=== PATIENT | female | born 2000 | race Caucasian/White ===

== ENCOUNTER → 2020-03-03 | Outpatient (CLI) | payer BC ==
[~2020-03-03] MED LIST: CIPR750T PO
== END | disposition home or self-care (01) ==
LOC: CFH 12:01
PROVIDERS: ATTEND Obstetrics & Gynecology Gynecology
DX: N63.10 Unspecified lump in the right breast, unspecified quadrant (principal)
CPT/HCPCS: 76642

== ENCOUNTER → 2020-08-17 | Outpatient (CLI) | payer BC | END | disposition home or self-care (01) | LOC: CFH 06:42 | PROVIDERS: ATTEND Obstetrics & Gynecology Gynecology | DX: R10.2 Pelvic and perineal pain (principal) | CPT/HCPCS: 76830 ==

== ENCOUNTER 2021-06-29 08:54 | Emergency (ER) | payer BC ==
[~2021-06-29] VITALS: Ht 177.8 cm; Wt 113.0 kg
[2021-06-29 09:31] LABS: MICROSCOPIC AUTO
[2021-06-29 09:48] LABS: BASOPHILS % (AUTO) 1 % (0-1); EOSINOPHILS % (AUTO) 2 % (1-7); LYMPHOCYTES % (AUTO) 25 % (22-44); MEAN CORPUSCULAR HGB CONC 34.1 g/dL (32.4-35.8); MEAN PLATELET VOLUME 8.4 fL (7.4-10.4); MONOCYTES % (AUTO) 6 % (2-9); NEUTROPHILS % (AUTO) 66 % (42-75); PLATELET COUNT 290 x10^3/uL (130-400); RED CELL DISTRIBUTION WIDTH 12.8 % (9.6-15.2)
[2021-06-29 09:55] LABS: ALBUMIN 3.9 g/dL (3.4-5.0); ANION GAP 9 mmol/L (5-15); CALCIUM 9.6 mg/dL (8.5-10.1); CHLORIDE 108 mmol/L (98-107); CREATININE 0.69 mg/dL (0.55-1.02)
--- NOTE | 2021-06-29 11:04 | NUR ---
PT AMBULATED TO ROOM WITH STEADY GAIT. PT CONNECTED TO MONITORING. CALL LIGHT IN REACH. WARM BLANKET PROVIDED.
[2021-06-29 11:05] VITALS: BP 136/72
[2021-06-29] MEDS ORDERED: CEFTRIAXONE 1,000 MG ONE (11:46)
--- NOTE | 2021-06-29 11:51 | NUR ---
DC INSTRUCTIONS REVIEWED
[2021-06-29] MEDS ORDERED: KETOROLAC 30 MG/1 ML IM ONE (12:00)
[2021-06-29] MEDS ORDERED: HYDROcodone/APAP 5/325 TABLET PO ONE (12:00)
[2021-06-29] MEDS ORDERED: CEFTRIAXONE 1,000 MG IM ONE (12:00)
== END 2021-06-29 12:02 | disposition home or self-care (01) ==
LOC: ED 12:01
DX: N30.00 Acute cystitis without hematuria (principal); R10.2 Pelvic and perineal pain; R19.7 Diarrhea, unspecified
CPT/HCPCS: 36415; 76830; 80048; 81001; 82040; 84703; 85025; 87086; 96372; 99284; J0696